=== PATIENT | female | born 1980 | race African-American/Black ===

== ENCOUNTER → 2020-09-15 09:51 | Outpatient (CLI) | payer OTHER, SELFPAY ==
--- NOTE | 2020-09-15 09:54 | DI.RAD.S_ITS ---
PROCEDURE: XR KNEE LT 3V INDICATIONS: L patella pain TECHNIQUE: 3 views of the knee were acquired. COMPARISON: None. FINDINGS: Bones: No fractures or dislocations. No suspicious bony lesions. Soft tissues: No joint effusion. No suspicious soft tissue calcifications. IMPRESSION: No fracture. No osseous lesion. If symptoms and/or clinical suspicion for pathology persists, further assessment with repeat radiographs (7-10 days) or advanced imaging (e.g. CT, MRI or bone scan) should be considered. Dictated by: Lisa Magana MD, PhD on 09/15/2020 at 10:58 Approved by: Lisa Magana MD, PhD on 09/15/2020 at 10:58
--- NOTE | 2020-09-15 10:26 | DI.US.S_ITS ---
PROCEDURE: US PERIPH VENOUS LOW EXTREM LT INDICATIONS: EDEMA TECHNIQUE: Real-time imaging, as well as color and pulse Doppler interrogation, were performed of the lower extremity deep veins from the inguinal ligament to the popliteal fossa. COMPARISON: None. FINDINGS: The common femoral, femoral and popliteal veins are normally compressible, and free of intraluminal thrombus. Color and pulse Doppler demonstrate normal phasic intraluminal flow. There is normal augmentation response to distal compression maneuver. IMPRESSION: Negative for deep venous thrombosis. Dictated by: Will Moore M.D. on 09/15/2020 at 9:32 Approved by: Will Moore M.D. on 09/15/2020 at 9:32
== END ==
PROVIDERS: PCP Registered Nurse; Referring Provider Nurse Practitioner; Visit Provider Nurse Practitioner
DX: M25.562 Pain in left knee (principal); M79.89 Other specified soft tissue disorders; R60.0 Localized edema
CPT/HCPCS: 73562; 93971

== ENCOUNTER → 2020-10-10 11:02 | Outpatient (CLI) | payer OTHER, SELFPAY ==
--- NOTE | 2020-10-10 11:04 | DI.MRI.S_ITS ---
PROCEDURE: MR KNEE LT WO CON INDICATIONS: left knee pain TECHNIQUE: Noncontrast sagittal PD fast spin echo and T2 fast spin echo with fat saturation, sagittal 3-D FLASH with fat saturation; coronal T1 spin echo and PD fast spin echo with fat saturation, and axial PD fast spin echo with fat saturation through the knee. COMPARISON: None. FINDINGS: Image quality: Excellent. Menisci: Subtle signal abnormality involving posterior horn of lateral meniscus is seen possibly contacting inferior articulating surface which may indicate a very subtle oblique tear in this area. No signal abnormality of contour irregularity is seen within lateral meniscus. The meniscal root ligaments appear intact. Cruciate ligaments: The anterior and posterior cruciate ligaments appear intact. Medial structures: The medial collateral ligament appears intact. The posterior oblique ligament, semimembranosus tendon insertions, oblique popliteal ligament, and meniscocapsular junction appear intact. Visualized portions of the pes anserinus tendons appear normal. No abnormal bursal fluid. Lateral structures: The lateral collateral ligament, long and short heads of the biceps femoris tendon appear intact. The popliteus tendon appears normal; the popliteofibular ligament appears intact. The posterosuperior and anteroinferior popliteomeniscal fascicles appear intact. The arcuate and fabellofibular ligaments appear intact, on either side of the lateral inferior geniculate artery. Iliotibial band appears normal. Anterior structures: The quadriceps and patellar tendons appear intact. Patellar alignment is normal. No femoral trochlear dysplasia or ventral trochlear prominence. No edema in the infrapatellar fat pad. Bones and cartilage: No bone marrow contusions or fractures. Low to moderate grade chondromalacia involving medial facet of patella cartilage inferiorly near apex is seen. Articulating cartilages in medial and lateral femoral tibial compartments are intact. Joint space: There is trace amount of joint fluid. No Coleman's cyst. Normal appearing synovial plicae are incidentally noted. IMPRESSION: 1. 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 2. Very subtle signal abnormality involving posterior horn of medial meniscus possibly extending to inferior articulating surface. Finding may represent very subtle oblique tear in posterior horn of medial meniscus versus mild degenerative changes. 3. Cruciate ligaments are intact. 4. No marrow edema. No fracture or dislocation. Dictated by: Baljeet Sidhu M.D. on 10/12/2020 at 9:02 Approved by: Baljeet Sidhu M.D. on 10/12/2020 at 9:05
== END ==
PROVIDERS: PCP Registered Nurse; Referring Provider Registered Nurse; Visit Provider Registered Nurse
DX: M25.562 Pain in left knee (principal); M22.42 Chondromalacia patellae, left knee
CPT/HCPCS: 73721